=== PATIENT | male | born 1980 | race Two or more races ===

== ENCOUNTER 2025-01-15 12:49 | Emergency (ER) | payer MEDICAID, OTHER ==
[~2025-01-15] VITALS: Ht 180.3 cm; Wt 74.6 kg
[2025-01-15] MEDS ORDERED: ACET500T58 PO (16:09)
[2025-01-15] MEDS ORDERED: BACDST PO (16:09)
[2025-01-15] MEDS ORDERED: IBUP-1455 PO (16:09)
--- NOTE | 2025-01-15 16:10 | ED.PDOC ---
HPI Comments This patient is a otherwise healthy 44-year-old male who arrives to the ED today for evaluation of the 3rd digit of his left hand status post laceration sustained a proximally 2 hours prior to arrival. Patient states he initially went to urgent care for evaluation. Urgent care noted in the laceration and x- rays confirmed a distal phalanx fracture. They advised to come to the ED for continued evaluation. Patient was stable at time of evaluation. Bleeding is controlled. Vital signs were stable. Chief Complaint: Laceration Time Seen by MD: 15:03 Reviewed Notes: Nurses Notes Allergies: Coded Allergies: NO KNOWN ALLERGIES (Unverified , 01/15/25) Information Source: Patient Mode of Arrival: Ambulatory Severity: Moderate Severity of Laceration: Controlled Bleeding Complexity: Intermediate Timing: Hours Prehospital treatment: None Laceration Location: Digit #3 (Left hand) Laceration Length (cm): 1 Skin Type: Jagged Depth of Injury: Skin, Mucosa Tendon Injury: 0% Tender: Moderate Discharge: Bloody Past Medical History PAST MEDICAL HISTORY: Denies Surgical History: Denies all surgeries Family History Family History: Reviewed,noncontributory to illness, No family hx of Cancer, No family hx of DM, No family hx of Heart sapna, No family hx of HTN, No family hx ofKidney sapna, No family hx of Liver sapna, No family hx of Lung sapna, No family hx of Stroke Social History Smoker: Non-Smoker Alcohol: Denies ETOH Use Drugs: Denies Drug Use Lives In: Home Constitutional: denies: chills, diaphoresis, fatigue, fever, malaise, sweats, weakness, others EENTM: denies: blurred vision, double vision, ear bleeding, ear discharge, ear drainage, ear pain, ear ringing, eye pain, eye redness, hearing loss, mouth pain, mouth swelling, nasal discharge, nose bleeding, nose congestion, nose pain, photophobia, tearing, throat pain, throat swelling, voice changes, others Respiratory: denies: cough, hemoptysis, orthopnea, SOB at rest, shortness of breath, SOB with excertion, stridor, wheezing, others Cardiovascular: denies: chest pain, dizzy spells, diaphoresis, Dyspnea on exertion, edema, irregular heart beat, left arm pain, lightheadedness, palpitations, PND, syncope, others Gastrointestinal: denies: abdomen distended, abdominal pain, blood streaked bowels, constipated, diarrhea, dysphagia, difficulty swallowing, hematemesis, melena, nausea, poor appetite, poor fluid intake, rectal bleeding, rectal pain, vomiting, others Genitourinary: denies: burning, dysuria, flank pain, frequency, hematuria, incontinence, penile discharge, penile sore, pain, testicle pain, testicle swelling, urgency, others Neurological: denies: dizziness, fainting, headache, left sided numbness, left sided weakness, numbness, paresthesia, pre-existing deficit, right sided numbness, right sided weakness, seizure, speech problems, tingling, tremors, weakness, others Musculoskeletal: reports: others (Distal 3rd digit of left hand pain and laceration); denies: back pain, gout, joint pain, joint swelling, muscle pain, muscle stiffness, neck pain Integumetry: reports: laceration (Distal left middle finger.); denies: bruises, change in color, change in hair/nails, dryness, lesions, lumps, rash, wounds, others Allergic/Immunocompromised: denies: Difficulty Healing, Frequent Infections, Hives, Itching, others Hematologic/Lymphatic: denies: anemia, blood clots, easy bleeding, easy bruising, swollen glands, others Physical Exam General Appearance: Mild Distress (Moderate distress due to left middle finger concerns.), Normal HEENT: Normal ENT Inspection, Pharynx Normal, TMs Normal Neck: Full Range of Motion, Non-Tender, Normal, Normal Inspection Respiratory: Chest Non-Tender, Lungs Clear, No Accessory Muscle Use, No Respiratory Distress, Normal Breath Sounds Cardiovascular: No Edema, No JVD, No Murmur, No Gallop, Normal Peripheral Pulses, Regular Rate/Rhythm Breast Exam: Deferred Gastrointestinal: No Organomegaly, Non Tender, No Pulsatile Mass, Normal Bowel Sounds, Soft Genitalia: Deferred Pelvic: Deferred Rectal: Deferred Extremities: Other (Patient sustained a laceration to medial aspect of the distal left 3rd finger that extends into the nail. No active bleed. Tender to palpation.) Neurologic: Alert Cerebellar Function: NOT DONE Reflexes: NOT DONE Skin: Dry, Normal Color, Warm Lymphatic: No Adenopathy Was a procedure done? Was a procedure done?: Yes Sedation Sedation?: No Other Procedure Notes Wound was soaked and irrigated copiously. Steri-Strips were applied. Rigid finger splint was placed. Patient tolerated procedure well. Differential diagnosis Generic Laceration: Fracture, Laceration X-Ray, Labs, Meds, VS Vital Signs Date Time Temp Pulse Resp B/P (MAP) Pulse Ox O2 Delivery O2 Flow Rate FiO2 01/15/25 12:50 97.9 81 16 141/84 99 97.9 X-Ray, Labs, Meds, VS Comment Spent time discussing the injury with the patient. Due to the nature of the laceration, suture intervention was not required. Steri-Strips were placed and a finger splint was placed. Patient has been advised to utilize antibiotics as directed until completion and additionally, patient should follow up with the primary care provider in approximately one week for re-evaluation. Patient should continue follow up so until the laceration and fracture has healed. Time of 1ST Reevaluation: 16:07 Reevaluation 1ST: Improved Consultation: PCP Patient Education/Counseling: Diagnosis, Treatment Family Education/Counseling: Diagnosis, Treatment Departure 1 Departure Time of Disposition: 16:07 Impression: Primary Impression: Phalanx, distal fracture of finger Additional Impression: Finger laceration Disposition: HOME / SELF CARE / HOMELESS Condition: Stable Additional Instructions: Patient has been advised to utilize antibiotics as directed until completion as well as pain medication as needed. Patient needs to follow up with his primary care provider for continued evaluation and management. Advised patient that the laceration and the fracture knee to heal completely. e-Prescriptions Acetaminophen (Acetaminophen) 500 Mg Tab 500 MG PO Q4HP PRN, #30 TAB Prov: DILAN RUSSO PAC 01/15/25 Ibuprofen Micronized (Ibuprofen) 800 Mg Tab 800 MG PO Q8HP PRN, #20 TAB Prov: DILAN RUSSO PAC 01/15/25 Sulfamethoxazole W/Trimethopri (Bactrim Ds Tablet) 1 Tab Tb 1 TAB PO BID for 10 Days, #20 TAB Prov: DILAN RUSSO PAC 01/15/25 Discharged With: Self, Friend Critical Care Note Critical Care Time?: No Stability Stability form required: No Heart Score Heart Score: Heart Score Response (Comments) Value History N/A 0 EKG N/A 0 Age N/A 0 Risk Factors N/A 0 Troponin N/A 0 Total 0 DILAN RUSSO PAC Jan 15, 2025 16:10
[2025-01-15 16:13] VITALS: BP 131/88; TEMP 98.9
[2025-01-15 16:19] VITALS: PULSE 74; RESP 16; O2SAT 96
== END 2025-01-15 16:23 | disposition home or self-care (01) ==
LOC: ER 12:49
DX: S62.639A Displaced fracture of distal phalanx of unspecified finger, initial encounter for closed fracture (principal); S61.213A Laceration without foreign body of left middle finger without damage to nail, initial encounter; X58.XXXA Exposure to other specified factors, initial encounter; Y93.89 Activity, other specified; Y92.89 Other specified places as the place of occurrence of the external cause; Y99.8 Other external cause status
CPT/HCPCS: 29130